=== PATIENT | female | born 1965 ===

== ENCOUNTER 2017-06-03 08:10 | Emergency (ER) | payer OTHER ==
--- NOTE | 2017-06-03 09:01 | C.PDOC ---
History Of Present Illness 51 year old female presents to the ED for evaluation of skin irritation. 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 Patient denies any work with chemicals, allergens, fever, nausea, vomit, lip swelling, tongue swelling. Time Seen by Provider: 06/03/17 08:29 Chief Complaint (Nursing): Abnormal Skin Integrity History Per: Patient History/Exam Limitations: no limitations Onset/Duration Of Symptoms: Days Current Symptoms Are (Timing): Still Present Location Of Injury: Right: Face, Forearm, Left: Face, Forearm Quality Of Symptoms: Itching Recent travel outside of the [place]: No Additional History Per: Patient Past Medical History Reviewed: Historical Data, Nursing Documentation, Vital Signs Vital Signs: Last Vital Signs Temp 97.9 F 06/03/17 08:24 Pulse 84 06/03/17 08:24 Resp 17 06/03/17 08:24 BP 136/88 06/03/17 08:24 Pulse Ox 100 06/03/17 09:09 - Medical History PMH: No Chronic Diseases Surgical History: No Surg Hx Family History: States: Unknown Family Hx - Social History Hx Alcohol Use: No Hx Substance Use: No Review Of Systems Constitutional: Negative for: Fever, Chills Cardiovascular: Negative for: Chest Pain Respiratory: Negative for: Cough, Shortness of Breath Gastrointestinal: Negative for: Nausea, Vomiting, Abdominal Pain Skin: Positive for: Rash Neurological: Negative for: Weakness, Numbness Physical Exam - Physical Exam Appears: Non-toxic, No Acute Distress Skin: Normal Color, Warm, Dry, Other (scant erythema on B/L cheeks, and arms) Head: Atraumatic, Normacephalic Eye(s): bilateral: Normal Inspection Ear(s): Bilateral: Normal Nose: No Discharge Oral Mucosa: Moist Throat: Normal, No Erythema, No Exudate Neck: Normal ROM, Supple Chest: Symmetrical Cardiovascular: Rhythm Regular, No Murmur Respiratory: Normal Breath Sounds, No Rales, No Rhonchi, No Wheezing Gastrointestinal/Abdominal: Soft, No Tenderness, No Guarding, No Rebound Extremity: Normal ROM, No Tenderness, No Swelling Neurological/Psych: Oriented x3 Gait: Steady ED Course And Treatment O2 Sat by Pulse Oximetry: 100 (On RA) Pulse Ox Interpretation: Normal Disposition - Disposition Referrals: [facility] at [facility] [Outside] Disposition: HOME/ ROUTINE Disposition Time: 09:07 Condition: GOOD Additional Instructions: Follow up with the medical doctor/clinic within 1-2 days without fail. Return if worsened. 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 - Scribe Statement The provider has reviewed the documentation as recorded by the Scribe Markie Ortega All medical record entries made by the Scribe were at my direction and personally dictated by me. I have reviewed the chart and agree that the record accurately reflects my personal performance of the history, physical exam, medical decision making, and the department course for this patient. I have also personally directed, reviewed, and agree with the discharge instructions and disposition.
[2017-06-03 09:31] VITALS: BP 135/69; PULSE 78; RESP 18; TEMP 98
[2017-06-04 22:52] VITALS: O2SAT 100
== END 2017-06-03 09:30 | disposition home or self-care (01) ==
LOC: C.ER 08:10
DX: R23.8 Other skin changes (principal)

== ENCOUNTER 2017-07-12 17:06 | Emergency (ER) | payer OTHER ==
[2017-07-12 17:18] VITALS: BMI 21.9
[2017-07-12 17:25] VITALS: BP 126/81; PULSE 84; RESP 17; TEMP 98; O2SAT 100
--- NOTE | 2017-07-12 18:29 | C.PDOC ---
History Of Present Illness 52 year old female presents to the ED with complaints of atraumatic right foot and ankle pain for 2 days. Patient denies having any fever, chills and weakness or numbness. No known mechanism of injury. Time Seen by Provider: 07/12/17 17:29 Chief Complaint (Nursing): Lower Extremity Problem/Injury History Per: Patient History/Exam Limitations: no limitations Onset/Duration Of Symptoms: Days Current Symptoms Are (Timing): Still Present Past Medical History Reviewed: Historical Data, Nursing Documentation, Vital Signs Vital Signs: Last Vital Signs Temp 98.0 F 07/12/17 17:18 Pulse 84 07/12/17 17:18 Resp 17 07/12/17 17:18 BP 126/81 07/12/17 17:18 Pulse Ox 100 07/12/17 19:06 - Medical History PMH: Hypercholesterolemia Other Surgeries: Fibroid Removal Family History: States: Unknown Family Hx - Social History Hx Alcohol Use: No Hx Substance Use: No - Immunization History Hx Tetanus Toxoid Vaccination: No Hx Influenza Vaccination: No Hx Pneumococcal Vaccination: No Review Of Systems Musculoskeletal: Positive for: Foot Pain (right foot) Physical Exam - Physical Exam Appears: Non-toxic, No Acute Distress Skin: Normal Color, Warm Eye(s): bilateral: Normal Inspection Extremity: Tenderness (to dorsal and plantar surface of right foot.), Deformity (right foot flat hallux valgus of the great toe.), Other (Neurovascularly intact ) Pulses: Left Dorsalis Pedis: Normal, Right Dorsalis Pedis: Normal Neurological/Psych: Oriented x3, Normal Speech ED Course And Treatment O2 Sat by Pulse Oximetry: 100 (RA) Pulse Ox Interpretation: Normal Medical Decision Making Medical Decision Making: IMPRESSION: Foot Pain Plan --Motrin Tab 400 mg PO --XR Right Ankle --XR Right Foot XR showed no fracture. Patient is stable for discharge and advised to follow-up with PMD in 2 days. Disposition Counseled Patient/Family Regarding: Studies Performed, Diagnosis, Need For Followup, Rx Given - Disposition Referrals: [facility] at [facility] [Outside] Disposition: HOME/ ROUTINE Disposition Time: 18:27 Condition: STABLE Additional Instructions: follow up with medical clinic in 2 days call to make an appointment take medications as needed for pain return to ER if symptoms worsens or progress Prescriptions: Naproxen [Naprosyn] 500 mg PO BID PRN #16 tab PRN Reason: Pain, Moderate (4-7) traMADol [Ultram] 50 mg PO TID PRN #10 tab PRN Reason: Pain, Moderate (4-7) Instructions: Metatarsalgia (DC), Joint Pain Forms: Gen Discharge Inst Guinean, [employer] (Guinean) Print Language: PERSIAN - Clinical Impression Clinical Impression: Foot pain - Scribe Statement The provider has reviewed the documentation as recorded by the Scribe (Flori Ridley) Provider Attestation: All medical record entries made by the Scribe were at my direction and personally dictated by me. I have reviewed the chart and agree that the record accurately reflects my personal performance of the history, physical exam, medical decision making, and the department course for this patient. I have also personally directed, reviewed, and agree with the discharge instructions and disposition.
--- NOTE | 2017-07-13 08:49 | RAD ---
PROCEDURE: Right Ankle Radiographs. HISTORY: pain COMPARISON: None FINDINGS: BONES: No acute fracture. JOINTS: Ankle mortise maintained. Talar dome intact SOFT TISSUES: Normal. OTHER FINDINGS: None. IMPRESSION: No demonstrated fracture or dislocation.
--- NOTE | 2017-07-13 08:50 | RAD ---
PROCEDURE: Right Foot Radiographs. HISTORY: pain COMPARISON: None. FINDINGS: BONES: No acute fracture. Hallux valgus deformity. JOINTS: Normal. SOFT TISSUES: Normal. OTHER FINDINGS: None. IMPRESSION: No demonstrated fracture or dislocation.
== END 2017-07-12 18:40 | disposition home or self-care (01) ==
LOC: C.ER 17:06
DX: M79.671 Pain in right foot (principal)

== ENCOUNTER 2017-11-28 09:11 | Emergency (ER) | payer OTHER, MEDICAID ==
[2017-11-28 09:12] VITALS: BMI 21.9
[2017-11-28 09:25] VITALS: BP 102/64; PULSE 63; RESP 18; TEMP 98.5; O2SAT 99
--- NOTE | 2017-11-28 10:05 | C.PDOC ---
History Of Present Illness 52 year old female presents to ED for evaluation of left eye pain since yesterday. Patient states it feels like something is in her eye. Denies trauma, visual changes, headache, dizziness, rashes, fever, diarrhea, vomiting, and other associated symptoms. Time Seen by Provider: 11/28/17 09:34 Chief Complaint (Nursing): Eye Problem History Per: Patient History/Exam Limitations: no limitations Onset/Duration Of Symptoms: Days Current Symptoms Are (Timing): Still Present Injury To Eye?: No Past Medical History Reviewed: Historical Data, Nursing Documentation, Vital Signs Vital Signs: Last Vital Signs Temp 98.5 F 11/28/17 09:24 Pulse 63 11/28/17 09:24 Resp 18 11/28/17 09:24 BP 102/64 11/28/17 09:24 Pulse Ox 99 11/28/17 11:55 - Medical History PMH: Hypercholesterolemia Family History: States: Unknown Family Hx - Social History Hx Alcohol Use: No Hx Substance Use: No - Immunization History Hx Tetanus Toxoid Vaccination: No Hx Influenza Vaccination: No Hx Pneumococcal Vaccination: No Review Of Systems Constitutional: Negative for: Fever, Chills Eyes: Positive for: Other (left eye pain ). Negative for: Vision Change Gastrointestinal: Negative for: Nausea, Vomiting Skin: Negative for: Rash Neurological: Negative for: Headache, Dizziness Physical Exam - Physical Exam Appears: Well, Non-toxic, No Acute Distress, Other (mildly uncomfortable ) Skin: Normal Color, Warm, Dry, No Rash Head: Atraumatic, Normacephalic Eye(s): bilateral: PERRL, EOMI, right: Normal Inspection, left: Other (left eye injected sclera, clear discharge, pterygium on medial aspect of the eye, no foreign body) Neurological/Psych: Oriented x3, Normal Speech Gait: Steady ED Course And Treatment O2 Sat by Pulse Oximetry: 99 (RA) Pulse Ox Interpretation: Normal Progress Note: Progress: Fluorescein uptake test under [place]. No fluorescein uptake. Prescribed Tobramycin eye drops and instructed to follow up with PMD. Disposition Counseled Patient/Family Regarding: Diagnosis, Need For Followup, Rx Given - Disposition Referrals: Wojciech aPlacios MD [Staff Provider] - Disposition: HOME/ ROUTINE Disposition Time: 10:05 Condition: STABLE Additional Instructions: FOLLOW UP WITH EYE DOCTOR IN 1-2 DAYS USE MEDICATION DIRECTED USE IBUPROFEN NEEDED FOR DISCOMFORT RETURN TO EMERGENCY ROOM IF SYMPTOMS WORSEN SEGUIR CON EL DOCTOR DE OJOS EN 1-2 PIERCE USE MEDICAMENTOS SEGN SE [place] USE IBUPROFEN SEGN SEA NECESARIO PARA ALLISON MALESTAR REGRESE AL SAE DE EMERGENCIA SI LOS SNTOMAS EMPEORAN Prescriptions: Dexamethasone/Tobramycin [Tobradex 0.1%-0.3% 2.5 Ml] 1 drop OP Q6 #1 bottle Forms: [employer] (Indian), General Discharge Instructions Print Language: SLOVENIAN - Clinical Impression Clinical Impression: Episcleritis of left eye - Scribe Statement The provider has reviewed the documentation as recorded by the Scribe (Harmony Lombardo) Provider Attestation: All medical record entries made by the Scribe were at my direction and personally dictated by me. I have reviewed the chart and agree that the record accurately reflects my personal performance of the history, physical exam, medical decision making, and the department course for this patient. I have also personally directed, reviewed, and agree with the discharge instructions and disposition.
== END 2017-11-28 10:11 | disposition home or self-care (01) ==
LOC: C.ER 09:11
DX: H15.102 Unspecified episcleritis, left eye (principal)

== ENCOUNTER 2018-01-28 13:55 | Emergency (ER) | payer OTHER ==
[2018-01-28 13:55] VITALS: BMI 21.9
[2018-01-28 14:18] VITALS: BP 124/76; PULSE 78; RESP 16; TEMP 98.1; O2SAT 100
--- NOTE | 2018-01-28 14:56 | C.PDOC ---
History Of Present Illness 52 y/o female presents to ED complaining of skin irritation on her arms and face x2 days. 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 Denies itching, known allergens, difficulty breathing or swallowing, lip or tongue swelling, n/v, or fever. Time Seen by Provider: 01/28/18 14:21 Chief Complaint (Nursing): Headache History Per: Patient History/Exam Limitations: no limitations Onset/Duration Of Symptoms: Days Current Symptoms Are (Timing): Still Present Past Medical History Reviewed: Historical Data, Nursing Documentation, Vital Signs Vital Signs: Last Vital Signs Temp 98.1 F 01/28/18 14:16 Pulse 78 01/28/18 14:16 Resp 16 01/28/18 14:16 BP 124/76 01/28/18 14:16 Pulse Ox 100 01/28/18 14:16 - Medical History PMH: Hypercholesterolemia Family History: States: No Known Family Hx - Social History Hx Alcohol Use: No Hx Substance Use: No - Immunization History Hx Tetanus Toxoid Vaccination: No Hx Influenza Vaccination: No Hx Pneumococcal Vaccination: No Review Of Systems Except As Marked, All Systems Reviewed And Found Negative. Constitutional: Negative for: Fever, Chills Cardiovascular: Negative for: Chest Pain Respiratory: Negative for: Shortness of Breath Skin: Positive for: Other (Burning on her arms and face) Neurological: Negative for: Weakness, Numbness Physical Exam - Physical Exam Appears: Non-toxic, No Acute Distress Skin: Warm, Dry, Other ((+) ? very mild erythema to the cheeks and forearms) Head: Atraumatic, Normacephalic Eye(s): bilateral: Normal Inspection, EOMI Ear(s): Bilateral: Normal Nose: Normal Oral Mucosa: Moist Tongue: No Normal Appearing Lips: No Normal Appearing Throat: Normal, No Drooling Neck: Normal ROM, Supple Chest: Symmetrical Cardiovascular: Rhythm Regular Respiratory: Normal Breath Sounds, No Accessory Muscle Use Extremity: Normal ROM Extremity: Bilateral: Atraumatic, Normal Color And Temperature, Normal ROM Neurological/Psych: Oriented x3, Normal Speech Gait: Steady ED Course And Treatment O2 Sat by Pulse Oximetry: 100 (RA) Pulse Ox Interpretation: Normal Progress Note: Previous records reviewed, pt was seen in 05/2017 for the same compliants. Diffussed avoiding the offending agent. Discussed signs of concern and return precautions. Disposition - Disposition Disposition: HOME/ ROUTINE Disposition Time: 14:54 Condition: STABLE Additional Instructions: Vaya a rodrigues mdico o la clnica en 1-3 deras sin falta, para mas evaluacin. [place] los medicamentos tiffany indicado. Volver a la day de emergencia en cualquier momento si los sntomas persisten o empeoran. 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 - Scribe Statement The provider has reviewed the documentation as recorded by the Scribe Mae Vivas All medical record entries made by the Scribe were at my direction and personally dictated by me. I have reviewed the chart and agree that the record accurately reflects my personal performance of the history, physical exam, medical decision making, and the department course for this patient. I have also personally directed, reviewed, and agree with the discharge instructions and disposition.
== END 2018-01-28 15:01 | disposition home or self-care (01) ==
LOC: C.ER 13:55
DX: L98.8 Other specified disorders of the skin and subcutaneous tissue (principal)

== ENCOUNTER 2018-03-06 10:17 | Emergency (ER) | payer OTHER ==
[2018-03-06 10:22] VITALS: BMI 24.0
--- NOTE | 2018-03-06 11:07 | C.PDOC ---
History Of Present Illness 52 y/o male presents to the ER complaining of itching and excessive tearing to the left eye which has been present for the past 3 days. Patient states that she also has eyelid swelling. Patient reports that she feels mild itching in right eye too. Denies having pain, changes in vision, headache, fever, chills,and using products in the area. Time Seen by Provider: 03/06/18 10:39 Chief Complaint (Nursing): Eye Problem History Per: Patient History/Exam Limitations: no limitations Onset/Duration Of Symptoms: Days Current Symptoms Are (Timing): Still Present Severity: Moderate Past Medical History Reviewed: Historical Data, Nursing Documentation, Vital Signs Vital Signs: Last Vital Signs Temp 98.3 F 03/06/18 10:22 Pulse 70 03/06/18 10:22 Resp 17 03/06/18 10:22 BP 124/83 03/06/18 10:22 Pulse Ox 100 03/06/18 10:22 - Medical History PMH: Hypercholesterolemia Other Surgeries: Hx of surgeries Family History: States: No Known Family Hx - Social History Hx Alcohol Use: No Hx Substance Use: No - Immunization History Hx Tetanus Toxoid Vaccination: No Hx Influenza Vaccination: No Hx Pneumococcal Vaccination: No Review Of Systems Constitutional: Negative for: Fever, Chills Eyes: Positive for: Other (itching to eyes). Negative for: Vision Change Physical Exam - Physical Exam Appears: Non-toxic, No Acute Distress Skin: Normal Color, Warm, Dry Head: Atraumatic, Normacephalic Eye(s): bilateral: PERRL, EOMI (without pain), Other (mild angioedema of the upper and lower eyelid, mild conjunctival injection with excessive tearing from ducts) Nose: Normal Oral Mucosa: Moist Neck: Supple Chest: Symmetrical Neurological/Psych: Oriented x3, Normal Speech ED Course And Treatment O2 Sat by Pulse Oximetry: 100 (RA) Pulse Ox Interpretation: Normal Medical Decision Making Medical Decision Making: Impression: Conjunctivitis Plan: Patient has been discharged and instructed to follow up with band machine operator, . 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 - Scribe Statement The provider has reviewed the documentation as recorded by the Scribe Courtney Villalobos Provider Attestation All medical record entries made by the Brennenibe were at my direction and personally dictated by me. I have reviewed the chart and agree that the record accurately reflects my personal performance of the history, physical exam, medical decision making, and the department course for this patient. I have also personally directed, reviewed, and agree with the discharge instructions and disposition.
[2018-03-06 11:38] VITALS: BP 106/70; PULSE 68; RESP 18; TEMP 98.1; O2SAT 97
== END 2018-03-06 11:37 | disposition home or self-care (01) ==
LOC: C.ER 10:17
DX: H10.9 Unspecified conjunctivitis (principal); E78.00 Pure hypercholesterolemia, unspecified

== ENCOUNTER 2018-05-24 07:54 | Outpatient (CLI) | payer OTHER, SELFPAY | END 2018-05-24 07:55 | disposition home or self-care (01) | LOC: C.MAMMO 07:55 | DX: Z12.31 Encounter for screening mammogram for malignant neoplasm of breast (principal) ==

== ENCOUNTER 2018-06-21 07:19 | Outpatient (CLI) | payer OTHER | END 2018-06-21 07:20 | disposition home or self-care (01) | LOC: C.USIC 07:20 | DX: E78.00 Pure hypercholesterolemia, unspecified (principal) ==